=== PATIENT | male | born 1995 | race Caucasian/White ===

== ENCOUNTER 2016-07-15 21:45 | Emergency (ER) | payer OTHER ==
[~2016-07-15] VITALS: Ht 182.9 cm; Wt 86.9 kg
[2016-07-15 21:51] VITALS: TEMP 37.3; Ht 182.9 cm; Wt 86.9 kg
[2016-07-15 22:33] LABS: URINE APPEARANCE CLEAR (CLEAR); URINE BILIRUBIN NEG (NEG); URINE COLOR YELLOW; URINE NITRITE NEG (NEG); URINE SPECIFIC GRAVITY 1.007 (1.000-1.030); UROBILINOGEN NEG (NEG); ZZUR CULT IF INDIC CLEAN CATCH NO
[2016-07-15 22:35] LABS: MANUAL MICROSCOPIC REQUIRED? NO; REVIEW REQ? NO
[2016-07-15 22:52] LABS: BENZODIAZEPINE, URINE NEG (NEG); COCAINE,URINE NEG (NEG); PHENCYCLIDINE, URINE NEG (NEG)
[2016-07-15] MEDS ORDERED: ARIP2TAB3 PO (22:55)
[2016-07-15 22:57] LABS: HEMATOCRIT 50.6 % (42-52); MEAN CORPUSCULAR HEMOGLOBIN 30.8 pg (25-34); MEAN CORPUSCULAR HGB CONC 37.2 g/dl (32-36); PLATELET COUNT 284 K/uL (130-400); WHITE BLOOD COUNT 17.49 K/uL (4.8-10.8)
[2016-07-15 23:12] LABS: BUN/CREATININE RATIO 8.7 (10-20); CALCIUM 9.1 mg/dl (8.5-10.1); CREATININE 1.2 mg/dl (0.60-1.40); POTASSIUM 3.6 mmol/L (3.5-5.1)
[2016-07-15 23:20] LABS: ACETAMINOPHEN < 2 ug/ml (10-30)
[2016-07-15 23:22] LABS: ALB/GLOB RATIO 1.2 (0.9-2); THYROID STIMULATING HORMONE 1.14 uIu/ml (0.300-4.500)
[2016-07-15 23:49] LABS: BASO % 0.1 %; BASO ABS # 0.01 K/uL (0-0.2); COMPLETE YES; EOS % 0.7 %; IG% 0.3 %; LYMPH % 10.5 %; LYMPH ABS # 1.84 K/uL (1.2-3.4); MONO % 7.5 %; NEUT % 80.9 %
[2016-07-16] MEDS ORDERED: NICOTINE 14 MG/24 HR TDSY TD ONE (00:15)
--- NOTE | 2016-07-16 00:30 | EMERGENCY ROOM VISIT NOTE ---
History Report prepared by Nicholas: Alfonso Aaron Under the Supervision of: Dr. Coco Ventura D.O. First contact with patient: 23:51 Chief Complaint: MENTAL HEALTH EVALUATION Stated Complaint: EVALUATION History of Present Illness The patient is a 20 year old male who presents to the Emergency Room because his parents are concerned about his behavior over the past few days. 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 His parents think he is having manic episodes. He has had an episode similar to this in the past where he was rapping and producing music. His parents thought he was suicidal and homicidal at the time because of the lyrics he was writing. At that time, he was admitted to [facility] in [place]. The patient notes that his parents think "he is crazy" because of his actions currently; however, he feels that he is fine and has no complaints. He sees a Psychiatrist and Psychologist at home. The patient talked to his Psychiatrist today who thought he was having a manic episode and the patient apparently got angry with him on the phone according to his parents. The patient takes Abilify daily and uses marijuana. He also had cocaine earlier today for the first time in a few months. He denies suicidal or homicidal ideation at this time. Source of History: patient, parent Onset: past few days Position: other (global) Note: Other associated symptoms: manic episode Denies: suicidal or homicidal ideation Review of Systems See HPI for pertinent positives & negatives. A total of 10 systems reviewed and were otherwise negative. Past Medical & Surgical Medical Problems: (1) Psychiatric disorder Family History Anxiety disorder FH: bipolar disorder FH: depression Social History Smoking Status: Never Smoker Drug Use: marijuana Housing Status: lives with roommate Occupation Status: student Current/Historical Medications Scheduled Aripiprazole (Abilify), 2 MG PO QAM Allergies Coded Allergies: No Known Allergies (Unverified , 07/15/16) Physical Exam Vital Signs Date Time Temp Pulse Resp B/P Pulse Ox O2 Delivery O2 Flow Rate FiO2 07/16/16 01:54 92 20 96 07/16/16 00:39 102 18 147/79 96 Room Air 07/15/16 21:51 37.3 138 18 123/82 98 Room Air Physical Exam HEENT: Head - normocephalic and atraumatic. Pupils are equal, round, and reactive to light. Extraocular eye muscles are intact and sclera are anicteric. Ears - bilaterally patent canals with noninjected tympanic membranes and no evidence of hemotympanum. Nose - moist nasal mucosa without discharge. Mouth - moist buccal mucosa. Oropharynx is nonerythematous and there is no tonsillar exudate or edema noted. Neck: Supple; no JVD, nuchal rigidity, cervical lymphadenopathy. Heart: Regular rate and rhythm. There is a normal S1 and S2 with no murmurs, clicks, or gallops appreciated. Lungs: Clear to auscultation bilaterally with no wheezes, rales, or rhonchi. Abdomen: Soft, completely nontender, nondistended, with good bowel sounds. There are no palpable pulsatile masses or hepatosplenomegaly. There is no guarding, rigidity, or rebound noted. Extremities: No evidence of cyanosis, clubbing, or edema. There are easily palpable peripheral pulses. Neuro:The patient is awake and alert, oriented to day, time, and place. Muscle strength is 5/5 in all 4 extremities. The patient has equal jury consultant strength and equal pedal push and pull. There are no cerebellar signs. Psych: Slightly manic. Denies suicidal and homicidal ideation. Medical Decision & Procedures Laboratory Results 07/15/16 22:19 Red Blood Count 6.10, Mean Corpuscular Volume 83.0, Mean Corpuscular Hemoglobin 30.8, Mean Corpuscular Hemoglobin Concent 37.2, Neutrophils (%) (Auto) 80.9, Lymphocytes (%) (Auto) 10.5, Monocytes (%) (Auto) 7.5, Eosinophils (%) (Auto) 0.7, Basophils (%) (Auto) 0.1, Neutrophils # (Auto) 14.14, Lymphocytes # (Auto) 1.84, Monocytes # (Auto) 1.31, Eosinophils # (Auto) 0.13, Basophils # (Auto) 0.01 07/15/16 22:19 Test 07/15/16 22:10 07/15/16 22:19 Urine Color YELLOW Urine Appearance CLEAR (CLEAR) Urine pH 6.0 (4.5-7.5) Urine Specific [place] 1.007 (1.000-1.030) Urine Protein NEG (NEG) Urine Glucose (UA) NEG (NEG) Urine Ketones NEG (NEG) Urine Occult Blood NEG (NEG) Urine Nitrite NEG (NEG) Urine Bilirubin NEG (NEG) Urine Urobilinogen NEG (NEG) Urine Leukocyte Esterase NEG (NEG) Urine Opiates Screen NEG (NEG) Urine Methadone, Qualitative NEG (NEG) Urine Barbiturates NEG (NEG) Urine Phencyclidine (PCP) Level NEG (NEG) Ur Amphetamine/Methamphetamine POS (NEG) MDMA (Ecstasy) Screen NEG (NEG) Urine Benzodiazepines Screen NEG (NEG) Urine Cocaine Metabolite NEG (NEG) Urine Marijuana (THC) POS (NEG) White Blood Count 17.49 K/uL (4.8-10.8) Red Blood Count 6.10 M/uL (4.7-6.1) Hemoglobin 18.8 g/dL (14.0-18.0) Hematocrit 50.6 % (42-52) Mean Corpuscular Volume 83.0 fL (80-100) Mean Corpuscular Hemoglobin 30.8 pg (25-34) Mean Corpuscular Hemoglobin Concent 37.2 g/dl (32-36) Platelet Count 284 K/uL (130-400) Neutrophils (%) (Auto) 80.9 % Lymphocytes (%) (Auto) 10.5 % Monocytes (%) (Auto) 7.5 % Eosinophils (%) (Auto) 0.7 % Basophils (%) (Auto) 0.1 % Neutrophils # (Auto) 14.14 K/uL (1.4-6.5) Lymphocytes # (Auto) 1.84 K/uL (1.2-3.4) Monocytes # (Auto) 1.31 K/uL (0.11-0.59) Eosinophils # (Auto) 0.13 K/uL (0-0.5) Basophils # (Auto) 0.01 K/uL (0-0.2) Immature Granulocyte % (Auto) 0.3 % Immature Granulocyte # (Auto) 0.06 K/uL (0.00-0.02) Red Blood Cell Morphology Unremarkable Anion Gap 13.0 mmol/L (3-11) Est Creatinine Clear Calc Drug Dose 107.8 ml/min Estimated GFR () 100.3 Estimated GFR (Non- 86.5 BUN/Creatinine Ratio 8.7 (10-20) Calcium Level 9.1 mg/dl (8.5-10.1) Total Bilirubin 0.6 mg/dl (0.2-1) Aspartate Amino Transf (AST/SGOT) 94 U/L (15-37) Alanine Aminotransferase (ALT/SGPT) 39 U/L (12-78) Alkaline Phosphatase 63 U/L (45-117) Total Protein 7.9 gm/dl (6.4-8.2) Albumin 4.3 gm/dl (3.4-5.0) Globulin 3.6 gm/dl (2.5-4.0) Albumin/Globulin Ratio 1.2 (0.9-2) Thyroid Stimulating Hormone (TSH) 1.140 uIu/ml (0.300-4.500) Salicylates Level 4.2 mg/dl (2.8-20) Acetaminophen Level < 2 ug/ml (10-30) Ethyl Alcohol mg/dL < 3.0 mg/dl (0-3) Laboratory results per my review. Medications Administered Medications (Trade) Dose Ordered Sig/Shakeel Route Start Time Stop Time Status Last Admin Dose Admin Nicotine (Nicoderm Cq 14MG Patch) 1 patch ONE ONCE TD 07/16/16 00:15 07/16/16 00:19 DC 07/16/16 00:40 1 PATCH Procedure Nicotine 1 patch ED Course 2355: Past medical records reviewed. The patient was evaluated in room A8. A complete history and physical exam was performed. Laboratory studies were drawn as above. 0015: Ordered Nicotine 1 patch TD. The patient was felt to be medically cleared and was evaluated by staff from [facility] S. He did not meet criteria for involuntary commitment for inpatient psychiatric care. 0045: Upon reevaluation, the patient is resting. I discussed findings and results with him and his family. I explained that I felt that he would require inpatient psychiatric care for this episode of acute kamini but he declined. They verbalized agreement of the treatment plan. The was discharged home. The patient's parents will stay in the area for the next 2 days until he is free to go home for spring. I strongly suggested that the patient avoid abusing drugs. Medical Decision The patient is a 20 year old who presents to the ED with possible manic episodes. Differential diagnoses include manic episodes, drug abuse, and bipolar disorder. Lab results show white count 17.4 hemoglobin 18.8 normal renal function and glucose LFTs were normal except for AST which was 94 normal TSH negative alcohol negative Tylenol Salicylate was 4.2 tox screen was positive for amphetamines and marijuana urinalysis was normal. This is a 20-year-old male patient who presents to the emergency department with what seems to be in acute manic episode. The patient's parents are quite concerned about his situation. He denies any homicidal or suicidal ideation. The patient does admit to drinking alcohol, smoking marijuana, and using cocaine. Impression Primary Impression: Mood disorder Additional Impression: Drug abuse Scribe Attestation The scribe's documentation has been prepared under my direction and personally reviewed by me in its entirety. I confirm that the note above accurately reflects all work, treatment, procedures, and medical decision making performed by me. Departure Information Dispostion Home / Self-Care Referrals No Doctor, Assigned (PCP) Forms HOME CARE DOCUMENTATION FORM, IMPORTANT VISIT INFORMATION Patient Instructions My [facility] Additional Instructions Stay in contact with your parents Avoid drug and alcohol use Follow up next week with your psychiatrist. Call [facility] as needed Problem Qualifiers
[2016-07-16 00:39] VITALS: BP 147/79
[2016-07-16 01:54] VITALS: PULSE 92; O2SAT 96
[2016-07-21 23:33] LABS: SYNTHETIC CANNABINOIDS QL URIN NEGATIVE (Negative)
== END 2016-07-16 01:55 | disposition home or self-care (01) ==
LOC: C.EDB 21:50 → C.EDA 07-16 01:55
DX: F39 Unspecified mood [affective] disorder (principal); F12.10 Cannabis abuse, uncomplicated; F15.10 Other stimulant abuse, uncomplicated; Z79.899 Other long term (current) drug therapy